=== PATIENT | female | born 1975 | race Caucasian/White ===

== ENCOUNTER → 2016-06-06 | Outpatient (CLI) | payer OTHER ==
[~2016-06-06] MED LIST: DIAZEPAM5 MG PO; MECLIZINE25 MG PO; MOTRIN 800800 MG/TAB PO; NO HOME MEDICATIONS; PERCOCET 325 MG1 TA2 PO; PHENERGAN 25 TA25 MG PO; PHENERGAN25 MG RC; PRILOTC PO
[2016-06-06 11:31] LABS: BASO % 0.2 % (0.0-2.0); EOS # 0.1 (0.0-0.7); GRAN # 3.1 (1.4-6.5); GRAN % 56.3 % (42.2-75.2); HEMATOCRIT 34.8 % (37.0-47.0); HEMOGLOBIN 11.4 g/dl (12.5-16.0); LYMPH % 35.5 % (20.0-51.0); MEAN CELL VOLUME 94 fl (80.0-100.0); MEAN CORPUSCULAR HEMOGLOBIN 31 pg (27.0-31.0); MEAN CORPUSCULAR HGB CONC 33 g/dl (33.0-37.0); MEAN PLATELET VOLUME 10.2 fl (7.4-10.4); MONO # 0.3 (0.1-0.6); MONO % 5.6 % (1.7-9.3); PLATELET COUNT 304 K/mm3 (130-400); REDCELL DISTRIBUTION WIDTH-CV 13.3 % (11.5-14.5); RETIC % 1.5 % (0.5-3.52); WHITE BLOOD COUNT 5.5 K/mm3 (4.8-10.8)
== END ==
LOC: ZLAB.FHCC 11:03
DX: Z01.89 Encounter for other specified special examinations (principal)

== ENCOUNTER → 2016-10-31 | Outpatient (CLI) | payer OTHER ==
[2016-10-31 13:33] LABS: MEAN CELL VOLUME 92 fl (80.0-100.0); MEAN CORPUSCULAR HGB CONC 32 g/dl (33.0-37.0); MEAN PLATELET VOLUME 9.5 fl (7.4-10.4); PLATELET COUNT 330 K/mm3 (130-400); RED BLOOD COUNT 3.26 M/mm3 (4.10-5.30); REDCELL DISTRIBUTION WIDTH-CV 13.6 % (11.5-14.5); WHITE BLOOD COUNT 5.9 K/mm3 (4.8-10.8)
[2016-10-31 13:36] LABS: HEMATOCRIT 30.1 % (37.0-47.0); HEMOGLOBIN 9.6 g/dl (12.5-16.0); MEAN CORPUSCULAR HEMOGLOBIN 29 pg (27.0-31.0)
[2016-10-31 13:50] LABS: ADJUSTED CALCIUM 9.3 mg/dL (8.4-10.2); ALBUMIN 4.4 gm/dL (3.5-5.0); BILIRUBIN,TOTAL 0.8 mg/dL (0.0-1.0); CALCIUM 9.6 mg/dL (8.4-10.2); CREATININE, serum 0.63 mg/dL (0.52-1.25); TOTAL PROTEIN 7.8 gm/dL (6.4-8.2)
[2016-10-31 14:20] LABS: THYROID STIMULATING HORMONE 1.51 uIU/mL (0.465-4.680)
== END ==
LOC: COL.RAD 12:41 → COL.LAB 12:41 → COL.RAD 13:30
DX: D25.9 Leiomyoma of uterus, unspecified (principal)

== ENCOUNTER 2017-01-22 11:01 | Day surgery (SDC) | payer OTHER ==
[~2017-01-22] VITALS: Ht 154.9 cm; Wt 71.8 kg
[2017-01-22] VITALS (8 sets, daily range): BP systolic 108–119; BP diastolic 61–73; PULSE 59–79; TEMP 97.7–98.8
[~2017-01-22 11:01] MED LIST changes: -MOTRIN 800800 MG/TAB PO; -PERCOCET 325 MG1 TA2 PO
[2017-01-22] MEDS ORDERED: MOTRIN 800800 MG/TAB PO (12:16)
[2017-01-22] MEDS ORDERED: PERCOCET 325 MG1 TA2 PO (12:17)
== END 2017-01-23 04:10 | disposition home or self-care (01) ==
LOC: SDCO 11:01 → OB 23:15 → SDCO 01-23 04:10
DX: N92.0 Excessive and frequent menstruation with regular cycle (principal); D25.2 Subserosal leiomyoma of uterus; N83.8 Other noninflammatory disorders of ovary, fallopian tube and broad ligament; D50.0 Iron deficiency anemia secondary to blood loss (chronic); K21.9 Gastro-esophageal reflux disease without esophagitis
CPT/HCPCS: OP; A4315; J0690; J1100; J1885; J2270; J2405; J2704; J2710; J3010; J7120

== ENCOUNTER → 2017-08-10 | Outpatient (CLI) | payer SELFPAY ==
[~2017-08-10] MED LIST changes: +MOTRIN 800800 MG/TAB PO; +PERCOCET 325 MG1 TA2 PO
[2017-08-10 09:32] LABS: HEMATOCRIT 33.5 % (37.0-47.0); MEAN CELL VOLUME 89 fl (80.0-100.0); MEAN CORPUSCULAR HEMOGLOBIN 29 pg (27.0-31.0); MEAN CORPUSCULAR HGB CONC 33 g/dl (33.0-37.0); MEAN PLATELET VOLUME 9.8 fl (7.4-10.4); PLATELET COUNT 278 K/mm3 (130-400); RED BLOOD COUNT 3.76 M/mm3 (4.10-5.30); REDCELL DISTRIBUTION WIDTH-CV 16.3 % (11.5-14.5)
== END ==
LOC: COL.LAB 09:15
DX: D64.9 Anemia, unspecified (principal); R53.83 Other fatigue

== ENCOUNTER → 2017-08-31 | Outpatient (CLI) | payer SELFPAY | LOC: COL.LAB 14:58 | DX: D64.9 Anemia, unspecified (principal) ==

== ENCOUNTER → 2017-09-10 | Outpatient (CLI) | payer OTHER ==
[2017-09-10 14:22] LABS: BASO % 0.3 % (0.0-2.0); EOS # 0.1 (0.0-0.7); EOS % 1.5 % (0-4.0); GRAN # 3.8 (1.4-6.5); GRAN % 58.7 % (42.2-75.2); HEMATOCRIT 33.9 % (37.0-47.0); HEMOGLOBIN 11.4 g/dl (12.5-16.0); LYMPH # 2.2 (1.2-3.4); MEAN CELL VOLUME 90 fl (80.0-100.0); MEAN CORPUSCULAR HEMOGLOBIN 30 pg (27.0-31.0); MEAN CORPUSCULAR HGB CONC 34 g/dl (33.0-37.0); MEAN PLATELET VOLUME 9.5 fl (7.4-10.4); MONO # 0.3 (0.1-0.6); MONO % 5.2 % (1.7-9.3); PLATELET COUNT 291 K/mm3 (130-400); RED BLOOD COUNT 3.78 M/mm3 (4.10-5.30); REDCELL DISTRIBUTION WIDTH-CV 16.1 % (11.5-14.5)
== END ==
LOC: COL.LAB 13:46
DX: D64.9 Anemia, unspecified (principal)

== ENCOUNTER → 2017-10-09 | Outpatient (CLI) | payer OTHER ==
[2017-10-09 14:27] LABS: HEMOGLOBIN 11.9 g/dl (12.5-16.0); MEAN CELL VOLUME 93 fl (80.0-100.0); MEAN CORPUSCULAR HEMOGLOBIN 31 pg (27.0-31.0); MEAN CORPUSCULAR HGB CONC 33 g/dl (33.0-37.0); MEAN PLATELET VOLUME 9.5 fl (7.4-10.4); PLATELET COUNT 294 K/mm3 (130-400); RED BLOOD COUNT 3.85 M/mm3 (4.10-5.30); REDCELL DISTRIBUTION WIDTH-CV 15.1 % (11.5-14.5); RETIC # 0.05 M/mm3 (0.02-0.16); RETIC % 1.3 % (0.5-3.52)
[2017-10-09 14:31] LABS: HEMATOCRIT 35.8 % (37.0-47.0)
[2017-10-09 14:39] LABS: ALBUMIN 4.4 gm/dL (3.5-5.0); BILIRUBIN,TOTAL 0.4 mg/dL (0.0-1.0); CALCIUM 9.8 mg/dL (8.4-10.2); CREATININE, serum 0.63 mg/dL (0.52-1.25); TOTAL PROTEIN 8.8 gm/dL (6.4-8.2)
[2017-10-09 15:06] LABS: BAND 5 % (0-10); EOSINOPHIL 2 % (0-4); LYMPHOCYTE 23 % (20.0-51.0); METAMYELOCYTE 1 % (0-0); NEUTROPHILS 68 % (42.0-75.2); PLATELET ESTIMATE NORMAL (NORMAL)
[2017-10-09 15:07] LABS: ANISOCYTOSIS 1+
[2017-10-10 02:25] LABS: FOLATE (FOLIC ACID) 17.1 ng/mL (7.0-31.4)
== END ==
LOC: COL.LAB 13:22
PROVIDERS: Internal Medicine Medical Oncology
DX: D64.9 Anemia, unspecified (principal)

== ENCOUNTER 2017-11-23 08:22 | Day surgery (SDC) | payer OTHER ==
[2017-11-23] VITALS (7 sets, daily range): BP systolic 103–114; BP diastolic 70–77; PULSE 62–77; TEMP 98.5
[~2017-11-23] VITALS: Ht 152.4 cm; Wt 70.4 kg
[2017-11-23] MEDS ORDERED: NEXIUM 20MG20 MG PO (09:31)
[2017-11-23] MEDS ORDERED: TYLENOL 8 HR PO (09:31)
[2017-11-23] MEDS ORDERED: GLUCOSAMINE & C1 CA2 PO (09:32)
[2017-11-23] MEDS ORDERED: NATURAL IRON65 MG PO (09:34)
[2017-11-23] MEDS ORDERED: VITAMIN B COMPL1 TA1 PO (09:35)
[2017-11-23] MEDS ORDERED: VITAMIN C500 MG PO (09:35)
== END 2017-11-23 12:45 | disposition home or self-care (01) ==
LOC: SDCO 08:22
DX: K92.1 Melena (principal); K64.0 First degree hemorrhoids; D64.9 Anemia, unspecified; K59.00 Constipation, unspecified; K21.9 Gastro-esophageal reflux disease without esophagitis; R19.7 Diarrhea, unspecified; K30 Functional dyspepsia; Z88.6 Allergy status to analgesic agent
CPT/HCPCS: OP; J2250; J3010; J7030

== ENCOUNTER → 2018-06-19 | Outpatient (CLI) | payer OTHER ==
[~2018-06-19] MED LIST changes: +GLUCOSAMINE & C1 CA2 PO; +NATURAL IRON65 MG PO; +NEXIUM 20MG20 MG PO; +TYLENOL 8 HR PO; +VITAMIN B COMPL1 TA1 PO; +VITAMIN C500 MG PO
== END ==
LOC: COL.RAD 16:13
DX: M16.12 Unilateral primary osteoarthritis, left hip (principal); M25.511 Pain in right shoulder

== ENCOUNTER 2019-01-11 23:36 | Emergency (ER) | payer SELFPAY ==
[2019-01-11 23:40] VITALS: TEMP 97.9
[2019-01-11 23:52] LABS: BASO % 0.4 % (0.0-2.0); EOS # 0.1 (0.0-0.7); EOS % 1.6 % (0-4.0); GRAN # 4.1 (1.4-6.5); GRAN % 51.3 % (42.2-75.2); LYMPH # 3.2 (1.2-3.4); LYMPH % 40.4 % (20.0-51.0); MEAN CELL VOLUME 94 fl (80.0-100.0); MEAN CORPUSCULAR HEMOGLOBIN 32 pg (27.0-31.0); MEAN CORPUSCULAR HGB CONC 34 g/dl (33.0-37.0); MEAN PLATELET VOLUME 9.7 fl (7.4-10.4); MONO # 0.5 (0.1-0.6); MONO % 6.2 % (1.7-9.3); PLATELET COUNT 293 K/mm3 (130-400); RED BLOOD COUNT 3.74 M/mm3 (4.10-5.30); REDCELL DISTRIBUTION WIDTH-CV 13.1 % (11.5-14.5)
[2019-01-11] MEDS ORDERED: NATURAL IRON65 MG PO (23:52)
[2019-01-11 23:53] LABS: HEMATOCRIT 35.2 % (37.0-47.0)
[2019-01-12 00:07] LABS: ALANINE AMINOTRANSFERASE 11 U/L (9-52); ALBUMIN 4.8 gm/dL (3.5-5.0); ALKALINE PHOSPHATASE 179 U/L (50-136); ANION GAP 12 mmol/L (7-16); AST,SGOT 24 U/L (15-37); BILIRUBIN,TOTAL 0.2 mg/dL (0.0-1.0); BLOOD UREA NITROGEN 14 mg/dL (7-17); C-REACTIVE PROTEIN 0.6 mg/dL (0.0-0.9); CALCIUM 9.3 mg/dL (8.4-10.2); CARBON DIOXIDE 22 mmol/L (22-30); CHLORIDE 107 mmol/L (98-107); CREATININE, serum 0.66 (0.52-1.25); GLUCOSE 155 mg/dL (74-106); LIPASE 202 U/L (23-300); POTASSIUM 3.7 mmol/L (3.4-5.0); SODIUM 141 mmol/L (137-145); TOTAL PROTEIN 8.3 gm/dL (6.4-8.2)
[2019-01-12 00:17] LABS: TROPONIN-I < 0.012 ng/mL (0.000-0.035)
[2019-01-12 00:51] LABS: COLLECTION METHOD CLEAN CATCH
[2019-01-12 01:00] LABS: PH 6 (5-8); SQUAMOUS EPITHELIAL 0-2 /hpf; URINE APPEARANCE Clear; URINE BACTERIA Rare /hpf; URINE BILIRUBIN Negative (NEGATIVE); URINE BLOOD Negative (NEGATIVE); URINE COLOR Straw; URINE GLUCOSE Negative (NEGATIVE); URINE KETONE Negative (NEGATIVE); URINE LEUKOCYTE ESTERASE Negative (NEGATIVE); URINE NITRATE Negative (NEGATIVE); URINE PROTEIN(semi-quant) Negative (NEGATIVE); URINE RBC 0-2 /hpf; URINE UROBILINOGEN Negative (NEGATIVE)
[2019-01-12 04:21] VITALS: BP 109/74; PULSE 92
== END 2019-01-12 04:51 | disposition home or self-care (01) ==
LOC: COL.ER 23:36
PROVIDERS: Emergency Medicine
DX: R10.84 Generalized abdominal pain (principal); R11.10 Vomiting, unspecified; Z90.710 Acquired absence of both cervix and uterus
CPT/HCPCS: J2405; J2550; J3010; J7030; Q9967

== ENCOUNTER → 2019-01-17 | Outpatient (CLI) | payer OTHER | LOC: COL.RAD 09:31 | DX: R10.11 Right upper quadrant pain (principal) ==

== ENCOUNTER → 2019-07-10 | Outpatient (CLI) | payer SELFPAY | LOC: COL.RAD 07:30 | DX: R10.13 Epigastric pain (principal) ==

== ENCOUNTER → 2020-03-16 | Outpatient (CLI) | payer SELFPAY ==
[2020-03-18 06:07] LABS: BAKERS YEAST ALLERGN IGE COUNT <0.10 kU/L (()); CORN ALLERGEN COUNT <0.10 kU/L (()); EGG WHITE ALLERGEN IGE COUNT <0.10 kU/L (()); MILK ALLERGEN IGE COUNT <0.10 kU/L (()); ORANGE ALLERGEN IGE COUNT <0.10 kU/L (()); PEANUT ALLERGEN IGE COUNT <0.10 kU/L (()); RICE ALLERGE IGE COUNT <0.10 kU/L (()); SOYBEAN ALLERGEN IGE COUNT <0.10 kU/L (()); STRAWBERRY ALLERGEN IGE COUNT <0.10 kU/L (()); TOMATO ALLERGEN IGE COUNT <0.10 kU/L (()); WHEAT ALLERGEN IGE COUNT 0.16 kU/L (())
== END ==
LOC: COL.LAB 08:16
PROVIDERS: Registered Nurse
DX: L50.9 Urticaria, unspecified (principal)

== ENCOUNTER → 2020-07-14 | Outpatient (CLI) | payer OTHER | LOC: MC.RAD 11:28 | DX: Z12.31 Encounter for screening mammogram for malignant neoplasm of breast (principal); N63.21 Unspecified lump in the left breast, upper outer quadrant ==

== ENCOUNTER → 2020-07-29 | Outpatient (CLI) | payer OTHER ==
[~2020-07-29] MED LIST changes: +CARAFATE 1GM1 G PO; +CLARITIN 1010 MG/TAB PO; +DEXILANT60 MG PO; +MI-ACID 200 MG-1 CT1 PO; +PEPCID 20MG TAB20 MG PO
== END ==
LOC: MC.RAD 08:59
DX: N64.9 Disorder of breast, unspecified (principal)

== ENCOUNTER → 2020-11-16 | Outpatient (CLI) | payer SELFPAY ==
[2020-11-19 06:45] LABS: BAKERS YEAST ALLERGN IGE COUNT <0.10 kU/L (()); CORN ALLERGEN COUNT <0.10 kU/L (()); EGG WHITE ALLERGEN IGE COUNT <0.10 kU/L (()); MILK ALLERGEN IGE COUNT <0.10 kU/L (()); ORANGE ALLERGEN IGE COUNT <0.10 kU/L (()); PEANUT ALLERGEN IGE COUNT <0.10 kU/L (()); RICE ALLERGE IGE COUNT <0.10 kU/L (()); SOYBEAN ALLERGEN IGE COUNT <0.10 kU/L (()); STRAWBERRY ALLERGEN IGE COUNT <0.10 kU/L (()); TOMATO ALLERGEN IGE COUNT <0.10 kU/L (()); WHEAT ALLERGEN IGE COUNT 0.14 kU/L (())
== END ==
LOC: COL.LAB 10:46
PROVIDERS: Registered Nurse
DX: L50.9 Urticaria, unspecified (principal)

== ENCOUNTER → 2021-01-14 | Outpatient (CLI) | payer OTHER | LOC: COL.RAD 07:52 | DX: R16.0 Hepatomegaly, not elsewhere classified (principal); R10.10 Upper abdominal pain, unspecified; Z90.710 Acquired absence of both cervix and uterus | CPT/HCPCS: Q9967 ==

== ENCOUNTER → 2021-02-09 | Outpatient (CLI) | payer OTHER | LOC: MC.RAD 14:00 | DX: N63.21 Unspecified lump in the left breast, upper outer quadrant (principal) ==

== ENCOUNTER → 2021-03-03 | Outpatient (CLI) | payer OTHER ==
[2021-03-03 17:18] LABS: ALBUMIN 3.8 gm/dL (3.5-5.0); BILIRUBIN,TOTAL 0.2 mg/dL (0.2-1.2); CALCIUM 9.5 mg/dL (8.4-10.2); CREATININE, serum 0.73 mg/dL (0.57-1.11); POTASSIUM 4.2 mmol/L (3.5-4.5); TOTAL PROTEIN 7.3 gm/dL (6.2-8.1)
== END ==
LOC: COL.LAB 16:11
PROVIDERS: Physician Assistant
DX: K76.0 Fatty (change of) liver, not elsewhere classified (principal)

== ENCOUNTER 2021-03-11 09:32 | Day surgery (SDC) | payer OTHER ==
[~2021-03-11] VITALS: Ht 152.4 cm; Wt 76.6 kg
[~2021-03-11 09:32] MED LIST changes: -CARAFATE 1GM1 G PO; -CLARITIN 1010 MG/TAB PO; -DEXILANT60 MG PO; -MI-ACID 200 MG-1 CT1 PO; -PEPCID 20MG TAB20 MG PO
[2021-03-11] MEDS ORDERED: CLARITIN 1010 MG/TAB PO (10:07)
[2021-03-11] MEDS ORDERED: DEXILANT60 MG PO (10:07)
[2021-03-11] MEDS ORDERED: CARAFATE 1GM1 G PO (10:08)
[2021-03-11] MEDS ORDERED: MI-ACID 200 MG-1 CT1 PO (10:08)
[2021-03-11] MEDS ORDERED: PEPCID 20MG TAB20 MG PO (10:09)
[2021-03-11 10:11] VITALS: BP 123/80; PULSE 80; TEMP 97.4
[2021-03-11 11:00] VITALS: BP 130/85; PULSE 72; TEMP 97.1
--- NOTE | 2021-03-11 11:00 | NUR ---
Patient arrived on cart from [facility] suite. Report obtained. Patient is very drowsy and gait is unsteady. We took it slow and had her first sit on the edged of the cart, dangling her legs. Ambulation was successful. Patient asked for the recliner to be set back and lights off. Denied wanting water. Vitals obtained. Call serrato is within reach. Will continue to monitor.
[2021-03-11 11:15] VITALS: BP 106/94; PULSE 58; PULSE 68
--- NOTE | 2021-03-11 11:19 | NUR ---
Patient is drowsy but is more alert than before. She still does not want anything to eat/drink. Vitals obtained. Will continue to monitor. Call serrato is within reach.
[2021-03-11 11:30] VITALS: BP 119/78; PULSE 58
--- NOTE | 2021-03-11 11:30 | NUR ---
Patient is alert and oriented x3. Vitals obtained. Call serrato is within reach. Another warm blanket provided. Will continue to monitor.
[2021-03-11 11:45] VITALS: BP 125/83; PULSE 75
--- NOTE | 2021-03-11 11:45 | NUR ---
Patient requested ice water and some jello, and is tolerating it. Vitals obtained. Call serrato is within reach. Will continue to monitor.
--- NOTE | 2021-03-11 12:05 | NUR ---
Patient reports sore thoat that is causing her to cough. Patient vomited once, but stated not feeling nauseous. States that the cough caused her to vomit. Zolfran administered and patient states feeling much better. Will continue to monitor.
--- NOTE | 2021-03-11 12:25 | NUR ---
IV was discontinued at this time due to discharge. Catheter is intact and no redness/swelling is present. Pressure bandage applied. Discharge instructions reviewed with daughter present, who is translating our conversation. Patient verbalized understanding. Discharge instructions are in polish. Patient is currently changing into personal clothes and states feeling ready to go home. Denies nausea and further vomiting.
--- NOTE | 2021-03-11 12:25 | NUR ---
Patient escorted out via wheelchair by CALE Collier. Accompanied by her daughter who is driving home. Patient was transferred into her care at this time and has her belongings and discharge information.
== END 2021-03-11 13:01 | disposition home or self-care (01) ==
LOC: SDCO 09:32
DX: K29.30 Chronic superficial gastritis without bleeding (principal); K21.9 Gastro-esophageal reflux disease without esophagitis; D64.9 Anemia, unspecified; M19.90 Unspecified osteoarthritis, unspecified site; E66.9 Obesity, unspecified; K76.0 Fatty (change of) liver, not elsewhere classified; R94.5 Abnormal results of liver function studies; Z20.822 Contact with and (suspected) exposure to COVID-19; Z79.899 Other long term (current) drug therapy; Z90.710 Acquired absence of both cervix and uterus
CPT/HCPCS: J2405; J2704; J7030

== ENCOUNTER → 2023-10-17 | Outpatient (CLI) | payer SELFPAY ==
[~2023-10-17] MED LIST changes: +CARAFATE 1GM1 G PO; +CLARITIN 1010 MG/TAB PO; +DEXILANT60 MG PO; +MI-ACID 200 MG-1 CT1 PO; +PEPCID 20MG TAB20 MG PO
== END ==
LOC: COL.RAD 12:44
DX: M25.562 Pain in left knee (principal)

== ENCOUNTER → 2024-03-11 | Outpatient (CLI) | payer OTHER | LOC: MC.RAD 13:10 | DX: Z12.31 Encounter for screening mammogram for malignant neoplasm of breast (principal) ==